=== PATIENT | female | born 1980 | race Caucasian/White ===

== ENCOUNTER 2025-02-01 20:10 | Emergency (ER) | payer BC, SELFPAY ==
[2025-02-01 20:11] VITALS: BP 153/98
[2025-02-01 20:38] LABS: Urine Character Cloudy (Clear)
[2025-02-01 20:42] LABS: Hematocrit 39.6 % (37.0-47.0); Hemoglobin 13.0 g/dL (12.0-16.0); Mean Corp Hgb Conc. 32.8 g/dL (33.0-37.0); Mean Corpuscular Volume 91.2 fL (81.0-99.0); Nucleated Red Blood Cells % 0 %; Platelet Count 296 10^3/uL (130-400); Red Cell Dist. Width 12.4 % (11.5-14.5)
[2025-02-01 20:44] LABS: ALT (SGPT) 16 U/L (0-35); AST (SGOT) 22 U/L (14-36); Albumin 4.7 g/dl (3.5-5.0); Alkaline Phosphatase 102 U/L (38-126); Blood Urea Nitrogen 15 mg/dl (7-17); Calcium 9.7 mg/dl (8.4-10.2); Carbon Dioxide 21 mmol/L (22-30); Chloride 108 mmol/L (98-107); Glucose 116 mg/dl (70-99); Potassium 4.3 mmol/L (3.5-5.1); Sodium 138 mmol/L (135-145); Total Protein 7.7 g/dl (6.3-8.2); eGFR > 60.00
[2025-02-01 20:50] LABS: Urine Red Blood Cell 80-90 /HPF (0-2); Urine Urothelial Cell 0-2 /LPF (FEW)
[2025-02-01] MEDS: NSS 1000 IV (21:53)
[2025-02-01] MEDS: ZOFRAN 4 MG IV (21:54)
[2025-02-01] MEDS: TORADOL 15 MG IV (21:54)
[2025-02-01] MEDS: ZOFRAN 4 MG PO (22:00)
[2025-02-01 22:25] LABS: Acetaminophen < 10 ug/ml (10-30); Salicylate < 1.0 mg/dl (2.0-20.0)
--- NOTE | 2025-02-01 22:39 | ED.GENMED ---
History of Present Illness
<Vandana Malloy DO - Last Filed: 02/01/25 22:56>
General
Chief Complaint: Flank Pain
Time Seen by Provider: 02/01/25 21:19
History of Present Illness
History of Present Illness:
44-year-old female with prior history of kidney stones presenting to the emergency department for left-sided flank pain. Patient reports that she woke up with the pain around 6 AM, has been constant since onset. She tried taking pain medications
at home including half of Vicodin. She also took a Flomax, however has had minimal relief. Notes nausea without vomiting. Feels that her pain is very similar to prior kidney stones, has required stenting in the past, however has also passed
multiple stones. Notes overall decreased urination. Reports history of , otherwise no abdominal surgeries. Denies fever. Denies additional acute medical complaints
Past History
<Vandana Malloy DO - Last Filed: 02/01/25 22:56>
Past History
ED Past Medical History: Hypercholesterolemia (No medication) and Other (Renal calclus)
ED Past Surgical History: ( X-2 )
Social History
Tobacco: Former smoker
Alcohol: Occasional
Drug: None
Personal:
Living: with family
Phy Exam
<Vandana Malloy DO - Last Filed: 02/01/25 22:56>
Physical Exam
Physical Exam:
General: Well-appearing, no clinical signs of dehydration, nontoxic and in no acute distress
HEENT: protecting airway
Neck: appears supple
CV: Normal heart rate
Resp: No accessory muscle use, no increased work of breathing
Abd: Soft and non-distended, no tenderness to palpation, no CVA tenderness
Extremities: No deformities, no swelling
Neuro: alert, no focal neurologic deficit
: deferred
Rectal: deferred
Psych: Normal affect
Skin: Intact
Course
<Vandana Gama, DO - Last Filed: 02/01/25 22:56>
Orders/Labs/Results
Orders:
Orders
02/01/25 20:23
Acetaminophen Urgent
Comment: ADD ON
Complete Blood Count/With Diff Urgent
Comprehensive Metabolic Panel Urgent
HCG, Serum Qualitative Screen Urgent
Comment: ADD ON
Salicylate Urgent
Date and Time of Last Dose: ADD ON
Urinalysis Reflex To Culture Urgent
Date Specimen was Collected: 02/01/25
Time Specimen was Collected: 20:14
Urine Microscopic Reflex Cult Urgent
Urine Culture Urgent
BRIANNA Source: U
Specimen Description:
Date Specimen was Collected: 02/01/25
Time Specimen was Collected: 20:14
02/01/25 21:34
Add On- LAB Urgent
Tests Added?: tylenol and salicylate level
02/01/25 21:35
Electrocardiogram (*1) Urgent
Reason for Study: QTc Monitoring
Ondansetron HCl [Zofran] 4 mg PO NOW STA
02/01/25 21:36
CT Abd/pel Without Iv Or Oral Urgent
Comment:
Reason For Exam: L-flank pain
0.9% Sodium Chloride 1000 ml [Nss] 1,000 ml IV BOLUS
Ketorolac [Toradol] 15 mg IV NOW STA
Ondansetron Injectable [Zofran] 4 mg IV NOW STA
02/01/25 22:20
Add On- LAB Urgent
Tests Added?: serum preg
Abnormal Lab Results
02/01/25
20:23
WBC 13.2 H 10^3/uL
(4.8-10.8)
MCHC 32.8 L g/dL
(33.0-37.0)
Absolute Neuts (auto) 11.0 H 10^3/uL
(1.4-6.5)
Neutrophils % 82.9 H %
(42.2-75.2)
Lymphocytes % 11.6 L %
(20.5-51.1)
Chloride 108 H mmol/L
(98-107)
Carbon Dioxide 21 L mmol/L
(22-30)
Glucose 116 H mg/dl
(70-99)
Urine Ketones 3+ A
(Negative)
Ur Occult Blood Reflex 4+ A
(Negative)
Leukocyte Esterase Rfl 1+ A
(Negative)
Urine RBC 80-90 A /HPF
(0-2)
Urine WBC (Reflex) 11-15 A /HPF
(0-5)
Urine Bacteria (Reflex) Moderate A
(Negative)
Urine Yeast Moderate A
(Negative)
Urine Albumin (Reflex) 2+ A
(Neg - Trace)
Salicylates < 1.0 L mg/dl
(2.0-20.0)
Acetaminophen < 10 L ug/ml
(10-30)
02/01/25 20:23
02/01/25 20:23
Vital Signs
Initial and Last Documented VS:
Initial Vital Signs
Temp Pulse Resp BP Pulse Ox
97.4 F 79 16 153/98 100
02/01/25 20:11 02/01/25 20:11 02/01/25 20:11 02/01/25 20:11 02/01/25 20:11
Last Documented Vital Signs
Temp Pulse Resp BP Pulse Ox
97.4 F 87 20 124/67 98
02/01/25 20:11 02/02/25 00:17 02/02/25 00:17 02/02/25 00:17 02/02/25 00:17
<Dolores Rivera, DO - Last Filed: 02/02/25 00:45>
Orders/Labs/Results
Orders:
Orders
02/01/25 20:23
Acetaminophen Urgent
Comment: ADD ON
Complete Blood Count/With Diff Urgent
Comprehensive Metabolic Panel Urgent
HCG, Serum Qualitative Screen Urgent
Comment: ADD ON
Salicylate Urgent
Date and Time of Last Dose: ADD ON
Urinalysis Reflex To Culture Urgent
Date Specimen was Collected: 02/01/25
Time Specimen was Collected: 20:14
Urine Microscopic Reflex Cult Urgent
Urine Culture Urgent
BRIANNA Source: U
Specimen Description:
Date Specimen was Collected: 02/01/25
Time Specimen was Collected: 20:14
02/01/25 21:34
Add On- LAB Urgent
Tests Added?: tylenol and salicylate level
02/01/25 21:35
Electrocardiogram (*1) Urgent
Reason for Study: QTc Monitoring
Ondansetron HCl [Zofran] 4 mg PO NOW STA
02/01/25 21:36
CT Abd/pel Without Iv Or Oral Urgent
Comment:
Reason For Exam: L-flank pain
0.9% Sodium Chloride 1000 ml [Nss] 1,000 ml IV BOLUS
Ketorolac [Toradol] 15 mg IV NOW STA
Ondansetron Injectable [Zofran] 4 mg IV NOW STA
02/01/25 22:20
Add On- LAB Urgent
Tests Added?: serum preg
Abnormal Lab Results
02/01/25
20:23
WBC 13.2 H 10^3/uL
(4.8-10.8)
MCHC 32.8 L g/dL
(33.0-37.0)
Absolute Neuts (auto) 11.0 H 10^3/uL
(1.4-6.5)
Neutrophils % 82.9 H %
(42.2-75.2)
Lymphocytes % 11.6 L %
(20.5-51.1)
Chloride 108 H mmol/L
(98-107)
Carbon Dioxide 21 L mmol/L
(22-30)
Glucose 116 H mg/dl
(70-99)
Urine Ketones 3+ A
(Negative)
Ur Occult Blood Reflex 4+ A
(Negative)
Leukocyte Esterase Rfl 1+ A
(Negative)
Urine RBC 80-90 A /HPF
(0-2)
Urine WBC (Reflex) 11-15 A /HPF
(0-5)
Urine Bacteria (Reflex) Moderate A
(Negative)
Urine Yeast Moderate A
(Negative)
Urine Albumin (Reflex) 2+ A
(Neg - Trace)
Salicylates < 1.0 L mg/dl
(2.0-20.0)
Acetaminophen < 10 L ug/ml
(10-30)
02/01/25 20:23
02/01/25 20:23
Vital Signs
Initial and Last Documented VS:
Initial Vital Signs
Temp Pulse Resp BP Pulse Ox
97.4 F 79 16 153/98 100
02/01/25 20:11 02/01/25 20:11 02/01/25 20:11 02/01/25 20:11 02/01/25 20:11
Last Documented Vital Signs
Temp Pulse Resp BP Pulse Ox
97.4 F 87 20 124/67 98
02/01/25 20:11 02/02/25 00:17 02/02/25 00:17 02/02/25 00:17 02/02/25 00:17
<Vandana Malloy, DO - Last Filed: 02/01/25 22:56>
MDM/Problems Addressed
MDM/Problems Addressed:
44-year-old female with prior history of kidney stones presenting for left-sided flank pain. Vital signs on arrival are significant for mild hypertension
Other on exam, patient is resting comfortably, no acute distress, slightly uncomfortable secondary to pain. No significant tenderness on palpation to the abdomen or the flanks, however given patient's history, do suspect nephrolithiasis. Patient
afebrile, nontoxic, lower suspicion for infected stone. Labs obtained prior to my assessment, mild leukocytosis, however urine without significant signs of infection. Toradol and fluids administered for pain. Will reassess. Will obtain CT
imaging.
22:50 - Pain has improved after Toradol. Pending CT
<Vandana Malloy, DO - Last Filed: 02/01/25 22:56>
*Pulse Oximetry
SaO2: 100
Oxygen Mode of Delivery: Room air
Patient hypoxic: no
*Critical Care Note
Total Time (30-74mins, 75-104mins- exclusive of procedures): Not Applicable
<Dolores Rivera DO - Last Filed: 02/02/25 00:45>
*Radiology
Radiology exam reviewed: radiology read reviewed (CAT scan shows mild to moderate left hydronephrosis secondary to distal left ureteral stone measuring 5 x 5 x 5 mm. Multiple additional nonobstructing bilateral renal stones. There is also note of
a large gallstone within partially contracted gallbladder. No gallbladder wall thickening nor biliar)
<Dolores Rivera DO - Last Filed: 02/02/25 00:45>
Update Note
Update Note:
00:40
Patient remains pain-free and comfortable.
CAT scan shows 5 mm stone distal left ureter with mild to moderate hydronephrosis.
Will discharge to home with prescription for 5-day course of oral Toradol, a few Vicodin for as needed moderate/severe breakthrough pain. Will continue short course of daily Flomax.
A prescription for as needed nausea has been provided as well.
Urinalysis concerning for potential UTI showing moderate bacteria, 11-15 WBCs. White blood cell count elevated at 13.2. Reassuring that patient has not had a fever but due to potential for UTI will place on short course of Ceftin. Urine culture
is pending.
Discussed importance of staying well-hydrated on a daily basis.
Follow-up with urologist.
Return precautions discussed.
ED Attending Note
<Vandana Malloy, DO - Last Filed: 02/01/25 22:56>
-
Portions of this chart may have been created with voice recognition software.� Occasional wrong word or��sound alike� substitutions may have occurred due to the inherent limitations of voice recognition software.
Discharge Plan
Departure
Patient Disposition: Home (Routine Discharge)
Date of Disposition: 02/02/25
Time of Disposition: 00:39
Patient with high blood pressure during this ER visit?: No
Condition: Good
Discharge Problem:
Left nephrolithiasis
Instructions: Kidney Stones (DC), How to Strain Your Urine
Prescriptions:
New
tamsulosin [Flomax] 0.4 mg capsule
0.4 mg PO DAILY 7 Days Qty: 7 0RF
ketorolac 10 mg tablet
10 mg PO Q6H 5 Days Qty: 20 0RF
ondansetron 4 mg tablet,disintegrating
4 mg PO QID PRN (Reason: nausea and vomiting) Qty: 20 0RF
hydrocodone-acetaminophen 5-300 mg tablet
1 tab PO Q8H PRN (Reason: Pain) Qty: 8 0RF
cefuroxime axetil 500 mg tablet
500 mg PO BID Qty: 10 0RF
No Action
tamsulosin [Flomax] 0.4 mg Capsule
0.4 mg PO DAILY Qty: 7 0RF
diclofenac sodium 75 mg tablet,delayed release (DR/EC)
75 mg PO BID Qty: 10 0RF
phenazopyridine 200 mg tablet
200 mg PO TID PRN (Reason: dysuria) Qty: 30 1RF
Referrals:
Jefferson Moore MD [Active, Urology]
Reece Jang MD [Family Provider, Internal Medicine]
Activity Restrictions/Additional Instructions:
You were seen in the emergency department for flank pain
You were found to have a kidney stone. We recommend that you follow-up with your urologist
Please follow-up closely with your primary care physician.
Return to the emergency department for any worsening of your symptoms, or any development of chest pain, difficulty breathing, abdominal pain with persistent vomiting and inability to tolerate food or liquid by mouth (concern for dehydration),
weakness, headache or confusion, fever greater than 100.4, or any additional symptoms that are concerning to you.
Thank you for choosing [facility].
Interventions
Interventions:
*General Assessment Last Done: 02/01/25 22:00
*ED- Fall Risk Assessment Last Done: 02/01/25 22:00
*ED COVID-19 Vaccine History Last Done: 02/01/25 22:00
YV-Nxwgdb-Pjsdxchxox Assessment Last Done: 02/01/25 22:00
ED-Female Genitourinary Assessment Last Done: 02/01/25 22:00
Discharge Date and Time
Print Language: MAORI
[2025-02-01 22:40] LABS: HCG, Serum Qualitative Screen Negative
[2025-02-01 23:29] VITALS: BP 125/79
[2025-02-02 00:17] VITALS: BP 124/67
[2025-02-02 00:54] VITALS: BP 129/79
[2025-02-02] MEDS: CEFTIN 500 MG PO (01:02)
== END 2025-02-02 01:12 | disposition home or self-care (01) ==
LOC: EMR 20:10
PROVIDERS: Student in an Organized Health Care Education/Training Program; EMERGENCY PHYSICIAN Student in an Organized Health Care Education/Training Program; FAMILY PHYSICIAN Internal Medicine
DX: N13.2 Hydronephrosis with renal and ureteral calculous obstruction (principal); K80.20 Calculus of gallbladder without cholecystitis without obstruction; E78.00 Pure hypercholesterolemia, unspecified; Z87.891 Personal history of nicotine dependence
CPT/HCPCS: 96374; 96375; 96361; 99284; 74176; 80053; 80143; 80179; 81003; 81015; 84703; 85025; 87086

== ENCOUNTER 2025-03-17 06:08 | Day surgery (SDC) | payer BC, SELFPAY ==
[2025-03-17] VITALS (8 sets, daily range): BP systolic 115–151; BP diastolic 71–91; BMI 32.0
[2025-03-17] MEDS: NORMOSOL-R/PLASMALYTE-A 1000 IV (09:11)
[2025-03-17] MEDS: ZOFRAN 4 MG IV (11:41)
== END 2025-03-17 13:24 | disposition home or self-care (01) ==
LOC: SDS 06:08
PROVIDERS: ATTENDING PHYSICIAN Specialist
DX: N20.0 Calculus of kidney (principal)
CPT/HCPCS: 52356; 74018; 76000; C1894; C2617